=== PATIENT | male | born 1990 | race Caucasian/White ===

== ENCOUNTER → 2024-06-05 | Outpatient (CLI) | payer OTHER, SELFPAY ==
[2024-06-05 10:02] LABS: Cholesterol 166 mg/dL (200); High Density Lipoprotein 49 mg/dL; PSA,Total - Annual Screen 0.89 ng/mL (0.00-4.00); Triglycerides 167 mg/dL; Very Low Density Lipoprotein 33 mg/dL (5-40)
== END | disposition home or self-care (01) ==
LOC: LAB 07:05
PROVIDERS: PCP Nurse Practitioner Family; Referring Provider Nurse Practitioner Family; Visit Provider Nurse Practitioner Family
DX: E78.5 Hyperlipidemia, unspecified (principal); R74.8 Abnormal levels of other serum enzymes; Z12.5 Encounter for screening for malignant neoplasm of prostate
CPT/HCPCS: 36415; 80061; 84153; G0103

== ENCOUNTER → 2024-06-24 | Outpatient (CLI) | payer OTHER, SELFPAY ==
[2024-06-24 14:59] LABS: Uric Acid 6.9 mg/dL (3.5-7.2)
[2024-06-24 15:24] LABS: Hemoglobin A1c 5.5 % (3.8-5.6)
== END | disposition home or self-care (01) ==
LOC: LAB.FUTURE 14:17 → LAB 06-25 01:20
PROVIDERS: PCP Nurse Practitioner Family; Visit Provider Nurse Practitioner Family
DX: R73.9 Hyperglycemia, unspecified (principal); M10.9 Gout, unspecified
CPT/HCPCS: 36415; 83036; 84550

== ENCOUNTER → 2025-03-19 | Outpatient (CLI) | payer OTHER, SELFPAY ==
--- NOTE | 2025-03-19 15:58 | RAD_ITS ---
PROCEDURE: FOOT MIN 3 VIEWS 03/19/2025 REASON FOR EXAM: R/O FRACTURE VS ARTHRITIS TECHNIQUE: FOOT MIN 3 VIEWS COMPARISON: No FINDINGS: Posterior and plantar calcaneal spurs. Os trigonum. Scattered minimal degeneration. No acute bone or soft tissue pathology. RAD/Foot min 3 Views IMPRESSION: No acute findings. Reading [facility]
--- NOTE | 2025-03-19 15:58 | RAD_ITS ---
PROCEDURE: FOOT MIN 3 VIEWS 03/19/2025 REASON FOR EXAM: R/O FRACTURE VS ARTHRITIS TECHNIQUE: FOOT MIN 3 VIEWS COMPARISON: No FINDINGS: Posterior and plantar calcaneal spurs. Os trigonum. No acute bone or soft tissue pathology. RAD/Foot min 3 Views IMPRESSION: No acute findings Reading [facility]
--- NOTE | 2025-03-19 15:58 | RAD_ITS ---
PROCEDURE: FOOT MIN 3 VIEWS 03/19/2025 REASON FOR EXAM: R/O FRACTURE VS ARTHRITIS TECHNIQUE: FOOT MIN 3 VIEWS COMPARISON: No FINDINGS: Posterior and plantar calcaneal spurs. Os trigonum. No acute bone or soft tissue pathology. RAD/Foot min 3 Views IMPRESSION: No acute findings Reading [facility]
--- NOTE | 2025-03-19 15:58 | RAD_ITS ---
PROCEDURE: FOOT MIN 3 VIEWS 03/19/2025 REASON FOR EXAM: R/O FRACTURE VS ARTHRITIS TECHNIQUE: FOOT MIN 3 VIEWS COMPARISON: No FINDINGS: Posterior and plantar calcaneal spurs. Os trigonum. Scattered minimal degeneration. No acute bone or soft tissue pathology. RAD/Foot min 3 Views IMPRESSION: No acute findings. Reading [facility]
== END | disposition home or self-care (01) ==
LOC: RAD 15:51
PROVIDERS: PCP Nurse Practitioner Family; Referring Provider Nurse Practitioner Family; Visit Provider Nurse Practitioner Family
DX: M79.671 Pain in right foot (principal); M79.672 Pain in left foot
CPT/HCPCS: 73630